=== PATIENT | male | born 2000 | race Caucasian/White ===

== ENCOUNTER 2020-05-14 11:29 | Outpatient (CLI) | payer OTHER ==
--- NOTE | 2020-05-14 13:25 | RAD ---
XR Hip Rt 2-3 View History: Rheumatoid arthritis Comparison: None. Findings: No acute fracture or malalignment.. Symphysis and SI joints appear relatively normal. No ac judy osseous abnormality. Low-grade narrowing of the lateral right hip joint. Impression: Low-grade narrowing lateral right hip joint. No acute osseous abnormality.
--- NOTE | 2020-05-14 13:25 | RAD ---
XR Knee Rt 3 View History: Rheumatoid arthritis Comparison: None. Findings: No acute fracture or malalignment. No significant joint effusion. Impression: No acute osseous abnormality.
--- NOTE | 2020-05-14 13:26 | RAD ---
XR Knee Lt 3 View History: Rheumatoid arthritis Comparison: None. Findings: No acute fracture or malalignment. Soft tissues are unremarkable. Impression: No acute osseous abnormality
== END 2020-05-14 11:30 | disposition home or self-care (01) ==
LOC: BICRAD 11:29
PROVIDERS: ATTEND Pediatrics Pediatric Rheumatology
DX: M06.041 Rheumatoid arthritis without rheumatoid factor, right hand (principal)